=== PATIENT | female | born 1940 | race Caucasian/White ===

== ENCOUNTER 2016-06-29 15:29 | Emergency (ER) | payer OTHER ==
[~2016-06-29] VITALS: Ht 162.6 cm; Wt 93.3 kg
[~2016-06-29 15:29] MED LIST: AMARYL2 MG PO; METFORMIN HCL500 MG PO; PRAVACHOL20 MG PO; ZESTRIL,PRINIVI20 MG PO
[2016-06-29 16:03] LABS: HEMATOCRIT 36.6 % (36.0-46.0); MCH 23.6 PG (29.0-34.0); MCHC 30.3 G/DL (30.0-36.0); MCV 77.9 FL (83-99); PLATELET COUNT 233 K/uL (156-360); RBC DIS.WIDTH-CV 15.8 % (11.8-14.6); WHITE BLOOD COUNT 11.6 K/uL (4.1-10.2)
[2016-06-29 16:16] LABS: CHLORIDE 103 mEq/L (99-109); POTASSIUM 4.3 mEq/L (3.7-5.4); SODIUM 136 mEq/L (136-147)
[2016-06-29 16:17] LABS: GLUCOSE 284 mg/dL (70-99)
[2016-06-29 16:19] LABS: ANION GAP 11 MEQ/L (2-14)
[2016-06-29 16:21] LABS: GFR ESTIMATE (CALCULATED) > 59 mL/min/
[2016-06-29 16:22] LABS: UREA NITROGEN (BUN) 18 mg/dL (9-23)
[2016-06-29 16:27] LABS: TROP-I INTERPRETATION NEGATIVE; TROPONIN-I < 0.01 ng/mL (0.0-0.30)
[2016-06-29] MEDS ORDERED: PERCOCET 5/31 TABLET PO (18:20)
[2016-06-29] MEDS ORDERED: KEFLEX500 MG PO (19:27)
[2016-06-29 19:39] VITALS: BP 135/68
== END 2016-06-29 19:39 | disposition home or self-care (01) ==
LOC: EME 15:29
PROVIDERS: Nurse Practitioner Family
PROC: 0HQ1XZZ Repair Face Skin, External Approach (ICD-10-PCS; principal; 2016-06-29)
DX: S01.112A Laceration without foreign body of left eyelid and periocular area, initial encounter (principal); S02.2XXA Fracture of nasal bones, initial encounter for closed fracture; S02.40DA Maxillary fracture, left side, initial encounter for closed fracture; S02.32XA Fracture of orbital floor, left side, initial encounter for closed fracture; S00.83XA Contusion of other part of head, initial encounter; S10.93XA Contusion of unspecified part of neck, initial encounter; W10.9XXA Fall (on) (from) unspecified stairs and steps, initial encounter; E11.9 Type 2 diabetes mellitus without complications; E78.5 Hyperlipidemia, unspecified; I10 Essential (primary) hypertension
CPT/HCPCS: 70450; 70486; 80048; 84484; 85027; 93005; 99281; 99284